=== PATIENT | female | born 1975 | race Caucasian/White ===

== ENCOUNTER 2019-06-09 10:42 | Emergency (ER) | payer SELFPAY ==
[2019-06-09 10:52] VITALS: BP 105/50; PULSE 97; TEMP 99.5; BMI 39.2
[2019-06-09] MEDS ORDERED: ALBUTEROL SO4 2.5/IPRATROPIUM 0.5 INH SOL 3 ML VIAL.NEB. NEB ONE ×2 (11:50→11:54)
[2019-06-09] MEDS ORDERED: ACETAMINOPHEN 500 MG TABLET (FP) ONE (12:29)
[2019-06-09] MEDS ORDERED: ACETAMINOPHEN 500 MG TABLET (FP) PO ONE (12:29)
--- NOTE | 2019-06-09 12:38 | PDOC ---
History of Present Illness - General Chief Complaint: Cold Symptoms Stated Complaint: FLU LIKE SYMPTOMS Time Seen by Provider: 06/09/19 11:21 History Source: Patient Exam Limitations: No Limitations - History of Present Illness Initial Comments: 06/09/19 12:30 43-year-old female denies past medical history presents complaining of dry cough , frontal headache, subjective fever, body aches, earache x3 days. Daughters at home with similar symptoms last week. Denies sore throat, nausea, vomiting, diarrhea, chest pain, abdominal pain, recent travel, rash. Took 400 mg of ibuprofen at approximately 8 AM today with minimal relief of symptoms. ROS: As above PE: GENERAL: well-appearing, NAD, obese HEAD: NCAT EYES: pupils equal, round and reactive to light, sclera anicteric, conjunctiva clear ENT: Minimal erythema to right ear canal, normal TM, pharynx: no erythema, no exudate, uvula midline NECK: supple, no LAD CHEST: nontender RESP: minimal wheezing throughout lung brewer CARDIO: rrr, no m/g/r ABD: +BS, soft, nontender, non distended BACK: no midline spinal ttp, no CVAT EXTREMITIES: Normal range of motion, no edema NEUROLOGICAL: Normal speech, normal gait SKIN: Warm, Dry, no rash Is this a multiple visit Asthma Patient?: No Past History - Past Medical History Allergies/Adverse Reactions: Allergies Allergy/AdvReac Type Severity Reaction Status Date / Time No Known Allergies Allergy Verified 06/09/19 10:48 Home Medications: Ambulatory Orders Oseltamivir Phosphate [Tamiflu -] 75 mg PO DAILY #10 capsule 06/09/19 COPD: No - Immunization History Immunization Up to Date: No - Psycho Social/Smoking Cessation Hx Smoking History: Never smoked Have you smoked in the past 12 months: No Hx Alcohol Use: Yes Drug/Substance Use Hx: No *Physical Exam - Vital Signs Last Vital Signs Temp Pulse Resp BP Pulse Ox 99.5 F 97 H 18 105/50 L 98 06/09/19 10:49 06/09/19 10:49 06/09/19 10:49 06/09/19 10:49 06/09/19 10:49 ED Treatment Course - Medications Given in the ED: ED Medications Discontinued Medications Generic Name Dose Route Start Last Admin Trade Name Freq PRN Reason Stop Dose Admin Albuterol/Ipratropium 1 amp 06/09/19 11:50 06/09/19 11:53 Duoneb - NEB 06/09/19 11:51 1 amp ONCE ONE Administration Medical Decision Making - Medical Decision Making 06/09/19 12:33 43-year-old female with no past medical history complaining of body aches, dry cough, frontal headache, earache x3 days. Daughters at home with similar symptoms last week. Rapid influenza positive Feels better after DuoNeb P.o. acetaminophen for headache Will send prescription for Tamiflu Advised bed rest and supportive care Strict return precautions Discharge - Discharge Information Problems reviewed: Yes Clinical Impression/Diagnosis: Influenza Condition: Stable Disposition: HOME - Admission No - Follow up/Referral - Patient Discharge Instructions Additional Instructions: Take Tamiflu as directed Rest, hydrate Alternate between acetaminophen and ibuprofen every 6 hours as needed for body aches Return to ED if you develop shortness of breath, chest pain, vomiting, diarrhea or any worsening symptom Follow-up with your doctor within a week - Post Discharge Activity
== END 2019-06-09 12:44 | disposition home or self-care (01) ==
LOC: JERFT 10:42
PROC: 3E0F7GC Introduction of Other Therapeutic Substance into Respiratory Tract, Via Natural or Artificial Opening (ICD-10-PCS; principal; 2019-06-09)
DX: J09.X2 Influenza due to identified novel influenza A virus with other respiratory manifestations (principal)
CPT/HCPCS: 87804; 99283-25

== ENCOUNTER 2021-09-24 21:12 | Emergency (ER) | payer SELFPAY ==
[2021-09-24 21:34] VITALS: BP 105/68; PULSE 98; TEMP 98.3; BMI 41.4
[2021-09-24] MEDS ORDERED: KETOROLAC TROMETHAMINE 30 MG/1 ML VIAL IM ONE (23:39)
[2021-09-24] MEDS ORDERED: KETOROLAC TROMETHAMINE 30 MG/1 ML VIAL ONE (23:53)
== END 2021-09-25 00:18 | disposition home or self-care (01) ==
LOC: JER 21:12
PROC: 3E023GC Introduction of Other Therapeutic Substance into Muscle, Percutaneous Approach (ICD-10-PCS; principal; 2021-09-24)
DX: B34.9 Viral infection, unspecified (principal)
CPT/HCPCS: 71046-TC-FY; 99284-25

== ENCOUNTER 2022-10-17 20:46 | Emergency (ER) | payer SELFPAY ==
[2022-10-17 20:57] VITALS: BP 125/59; PULSE 80; RESP 18; TEMP 98.5; BMI 38.1
[2022-10-17] MEDS ORDERED: FAMOTIDINE 20 MG TABLET PO ONE (21:19)
[2022-10-17] MEDS ORDERED: LORATADINE 10 MG TABLET PO ONE (21:19)
[2022-10-17] MEDS ORDERED: LORATADINE 10 MG TABLET ONE (21:25)
[2022-10-17] MEDS ORDERED: FAMOTIDINE 20 MG TABLET ONE (21:26)
[2022-10-17 21:45] LABS: THROAT:GRP A STREP NOT DETECTED (NOTDETECTED)
== END 2022-10-17 21:38 | disposition home or self-care (01) ==
LOC: JER 20:46 → JERFT 20:46
DX: R05.9 Cough, unspecified (principal); R07.89 Other chest pain; R07.0 Pain in throat; R09.81 Nasal congestion; R06.02 Shortness of breath; Z20.822 Contact with and (suspected) exposure to COVID-19
CPT/HCPCS: 0241U-QW; 87651; 99283-25

== ENCOUNTER 2023-02-24 23:00 | Emergency (ER) | payer SELFPAY ==
[2023-02-24 23:10] VITALS: TEMP 98.6; BMI 31.4
[2023-02-25] MEDS ORDERED: SODIUM CHLORIDE 0.9% 1000 ML INFUS.BAG IV ONE (00:07)
[2023-02-25 00:18] LABS: BASO % 0.6 % (0-2.0); HEMATOCRIT 37.2 % (32.4-45.2); HEMOGLOBIN 12.7 GM/dL (10.7-15.3); LYMPH % 13.6 % (8-40); MCH 29.3 pg (25.7-33.7); MCHC 34.1 g/dl (32.0-36.0); MEAN CELL VOLUME 85.9 fl (80-96); MEAN PLT VOLUME 8.3 fl (7.5-11.1); MONO % 8.4 % (3.8-10.2); NEUT % 69.4 % (42.8-82.8); PLATELET COUNT 208 10^3/uL (134-434); RBC 4.33 M/mm3 (3.60-5.2); RDW 15.4 % (11.6-15.6); WHITE BLOOD COUNT 7.4 K/mm3 (4.0-10.0)
[2023-02-25 00:37] LABS: POTASSIUM 3.3 mmol/L (3.5-5.1)
[2023-02-25 00:39] LABS: CALCIUM 8.5 mg/dL (8.5-10.1)
[2023-02-25 00:40] LABS: ALBUMIN 3.4 g/dl (3.4-5.0); BLOOD UREA NITROGEN 11.2 mg/dL (7-18)
[2023-02-25 00:43] LABS: CREATININE 0.5 mg/dL (0.55-1.3)
[2023-02-25 00:44] LABS: TOT PROT 7.5 g/dl (6.4-8.2)
[2023-02-25 00:45] LABS: BILIRUBIN,TOTAL 0.5 mg/dL (0.2-1)
[2023-02-25] MEDS ORDERED: KETOROLAC TROMETHAMINE 30 MG/1 ML VIAL IVPUSH ONE (01:14)
[2023-02-25] MEDS ORDERED: KETOROLAC TROMETHAMINE 30 MG/1 ML VIAL ONE (01:23)
[2023-02-25] MEDS ORDERED: DEXTROMETHORPHAN/PROMETHAZINE 15 MG/6.25 MG/5 ML SYRUP PO ONE (01:36)
[2023-02-25] MEDS ORDERED: POTASSIUM CHLORIDE TABS 20 MEQ TABLET.ER (FP) PO ONE ×2 (01:46→01:48)
[2023-02-25 02:01] VITALS: BP 122/70; PULSE 82; RESP 18
[2023-02-25] MEDS ORDERED: BENZONATATE 200 MG CAPSULE PO ONE (02:15)
== END 2023-02-25 02:37 | disposition home or self-care (01) ==
LOC: JERFT 23:00
PROC: 3E033NZ Introduction of Analgesics, Hypnotics, Sedatives into Peripheral Vein, Percutaneous Approach (ICD-10-PCS; principal; 2023-02-25)
DX: R50.9 Fever, unspecified (principal); R51.9 Headache, unspecified; R53.83 Other fatigue; R63.0 Anorexia; U07.1 COVID-19; E87.6 Hypokalemia; R74.01 Elevation of levels of liver transaminase levels
CPT/HCPCS: 0241U-QW; 36415; 80053; 83605; 85025; 86705; 87340; 87517; 99284-25